=== PATIENT | female | born 1965 | race Caucasian/White ===

== ENCOUNTER 2016-09-07 14:08 | Emergency (ER) | payer MEDICAID ==
--- NOTE | 2016-09-07 14:06 | EDPHY ---
H & P Time Seen by Provider: 09/07/16 14:49 HPI/ROS: CHIEF COMPLAINT: Dizziness HISTORY OF PRESENT ILLNESS: This patient is a 51 year old female arriving by EMS from [facility] who presents complaining of persistent lightheadedness and intermittent episodes of room-spinning dizziness over the past two weeks. She was seen by her PCP at [facility] today for these complaints; she had an abnormal EKG at that time which prompted her transfer to the Emergency Department. Upon arrival, she reports persistent dizziness exacerbated by movement of her head or when attempting to walk. She does report a very mild headache with associated photophobia. She denies chest pain or shortness of breath. Medical history includes hyperlipidemia, untreated at present. REVIEW OF SYSTEMS: Constitutional: No fever, no chills Eyes: No visual changes ENT: No sore throat Respiratory: No cough, no shortness of breath Cardiac: No chest pain Gastrointestinal: No nausea, no vomiting, no abdominal pain Genitourinary: No hematuria, no dysuria Musculoskeletal: No leg pain or swelling Skin: No rash Neurological: +dizziness, +mild headache, no numbness, no weakness Psychiatric: No depression Past Medical/Surgical History: Hyperlipidemia. Social History: On Medicaid. Smokes daily. No alcohol use. Smoking Status: Current every day smoker Physical Exam: General Appearance: Alert, no distress Eyes: Pupils equal and round, no conjunctival pallor or injection, horizontal nystagmus when looking to the left ENT, Mouth: Mucous membranes moist Neck: Normal inspection Respiratory: Lungs are clear to auscultation Cardiovascular: Regular rate and rhythm Gastrointestinal: Abdomen is soft and non- tender Neurological: Alert, oriented x3, cranial nerves II through XII intact, motor 5/ 5, sensory intact to light touch, normal gait Skin: Warm and dry, no rash Extremities: Nontender, no pedal edema Psychiatric: Mood and affect normal Constitutional: Initial Vital Signs Temperature (C) 36.8 C 09/07/16 14:08 Heart Rate 83 09/07/16 14:08 Respiratory Rate 16 09/07/16 14:08 Blood Pressure 150/101 H 09/07/16 14:08 O2 Sat (%) 95 09/07/16 14:08 O2 Delivery Mode Room Air O2 (L/minute) 2 Allergies/Adverse Reactions: Penicillins Allergy (Verified 09/07/16 14:16) Home Medications: Medication Instructions Recorded Cymbalta 09/07/16 Meclizine HCl [Meclizine HCl 25 mg 25 mg PO TID PRN #15 tab 09/07/16 (RX,OTC)] VITAMIN D 09/07/16 Medical Decision Making - Diagnostics EKG Interpretation: EKG interpreted by me reveals normal sinus rhythm, rate 77, no ST/T changes. Interpretation: normal EKG Imaging: Chest x-ray reviewed by me reveals no acute disease. ED Course/Re-evaluation: This patient was referred to the ED from [facility] for abnormal finding on EKG and complaints of room-spinning dizziness over the past two weeks. I reviewed her records from [facility]; EKG obtained today demonstrated mild finding of poor R -wave progression. Her history and exam are suggestive of BPPV. She will be treated with Antivert and given a referral to ENT for further evaluation. Cardiac risk factors include hyperlipidemia and daily smoking. Given this, will proceed with chest x-ray, EKG, and labs including troponin. Labs obtained and are unremarkable. Troponin is negative. 1539: On reevaluation, the patient reports that her dizziness has improved following administration of Antivert. I discussed imaging and lab results with her. She understands my recommendation to follow-up with ENT and cardiology for further evaluation of her symptoms and is agreeable to this. She will be discharged home in good condition. Differential Diagnosis: Differential diagnosis includes TIA, stroke, intracranial hemorrhage, tumor, electrolyte abnormality and acute labyrinthitis. - Data Points Laboratory Results: Laboratory Results 09/07/16 14:32 09/07/16 14:32 09/07/16 09/07/16 14:32 14:32 WBC 8.02 10^3/uL 10^3/uL (3.80-9.50) RBC 4.72 10^6/uL 10^6/uL (4.18-5.33) Hgb 15.2 g/dL g/dL (12.6-16.3) Hct 43.2 % % (38.0-47.0) MCV 91.5 fL fL (81.5-99.8) MCH 32.2 pg pg (27.9-34.1) MCHC 35.2 g/dL g/dL (32.4-36.7) RDW 12.2 % % (11.5-15.2) Plt Count 308 10^3/uL 10^3/uL (150-400) MPV 9.1 fL fL (8.7-11.7) Neut % (Auto) 52.1 % % (39.3-74.2) Lymph % (Auto) 40.1 % % (15.0-45.0) Chase % (Auto) 5.4 % % (4.5-13.0) Eos % (Auto) 1.6 % % (0.6-7.6) Baso % (Auto) 0.6 % % (0.3-1.7) Nucleat RBC Rel Count 0.0 % % (0.0-0.2) Absolute Neuts (auto) 4.17 10^3/uL 10^3/uL (1.70-6.50) Absolute Lymphs (auto) 3.22 10^3/uL H 10^3/uL (1.00-3.00) Absolute Monos (auto) 0.43 10^3/uL 10^3/uL (0.30-0.80) Absolute Eos (auto) 0.13 10^3/uL 10^3/uL (0.03-0.40) Absolute Basos (auto) 0.05 10^3/uL 10^3/uL (0.02-0.10) Absolute Nucleated RBC 0.00 10^3/uL 10^3/uL (0-0.01) Immature Gran % 0.2 % % (0.0-1.1) Immature Gran # 0.02 10^3/uL 10^3/uL (0.00-0.10) Sodium 133 mEq/L L mEq/L (134-144) Potassium 4.2 mEq/L mEq/L (3.5-5.2) Chloride 100 mEq/L mEq/L (97-110) Carbon Dioxide 23 mEq/l mEq/l (22-31) Anion Gap 10 mEq/L mEq/L (8-16) BUN 9 mg/dL mg/dL (7-23) Creatinine 0.7 mg/dL mg/dL (0.6-1.0) Estimated GFR > 60 Glucose 93 mg/dL mg/dL (70-100) Calcium 9.7 mg/dL mg/dL (8.5-10.4) Troponin I < 0.012 ng/mL ng/mL (0-0.034) Departure - Departure Disposition: Home, Routine, Self-Care Clinical Impression: Vertigo Condition: Good Instructions: Vertigo (ED) Additional Instructions: 1. Follow up with Dr. Moreland, [employer] consultant, for further evaluation. Call tomorrow to schedule your appointment. 2. Schedule a follow-up appointment with an Ear, Nose, and Throat Specialist to treat your vertigo. We have referred you to [facility]. 3. Take Antivert as prescribed, as needed to treat your room-spinning dizziness. 4. Return to the Emergency Department if you experience chest pain, shortness of breath, numbness or weakness, difficulty walking, severe headache, or for other serious concerns. Referrals: Ezra Mcallister PA [Physician Contract Paralegal] - As per Instructions Chaim Moreland MD [Medical Doctor] - As per Instructions Prescriptions: Meclizine HCl [Meclizine HCl 25 mg (RX,OTC)] 25 mg PO TID PRN #15 tab PRN Reason: Dizziness Report Scribed for: Luba Ornelas Report Scribed by: Sultana Otto Date of Report: 09/07/16 Time of Report: 14:06 Physician Review and Approval Statement: 09/07/16 14:06 Portions of this note were transcribed by a medical staffing coordinator. I personally performed a history, physical exam, medical decision making, and confirmed accuracy of information the transcribed note.
[2016-09-07 14:20] VITALS: RESP 16; TEMP 98.2
--- NOTE | 2016-09-07 14:22 | CPEKG ---
Heart Rate: 77 RR Interval: 779 P-R Interval: 160 QRSD Interval: 88 QT Interval: 380 QTC Interval: 431 P Doerun: 59 QRS Doerun: 26 T Wave Doerun: 24 EKG Severity - NORMAL ECG - EKG Impression: SINUS RHYTHM Electronically Signed By: Luba Ornelas 07-Sep-2016 20:51:22
[2016-09-07 14:40] LABS: % IMMATURE GRANULYOCYTES 0.2 % (0.0-1.1); ABSOLUTE IMMATURE GRANULOCYTES 0.02 10^3/uL (0.00-0.10); ADD DIFF? NO; ADD MORPH? NO; ADD SCAN? NO; ATYPICAL LYMPHOCYTE FLAG 10 (0-99); FRAGMENT RBC FLAG 0 (0-99); HEMATOCRIT 43.2 % (38.0-47.0); HEMOGLOBIN 15.2 g/dL (12.6-16.3); LEFT SHIFT FLG 0 (0-99); LIPEMIA HEMOLYSIS FLAG 90 (0-99); MEAN CELL HEMOGLOBIN 32.2 pg (27.9-34.1); MEAN CELL HEMOGLOBIN CONCENTR. 35.2 g/dL (32.4-36.7); MEAN CELL VOLUME 91.5 fL (81.5-99.8); MEAN PLATELET VOLUME 9.1 fL (8.7-11.7); PLATELET CLUMPS FLAG 0 (0-99); PLATELET COUNT 308 10^3/uL (150-400); RED BLOOD CELL COUNT 4.72 10^6/uL (4.18-5.33); RED CELL DISTRIBUTION WIDTH 12.2 % (11.5-15.2)
[2016-09-07 14:53] LABS: ANION GAP 10 mEq/L (8-16); CALCIUM 9.7 mg/dL (8.5-10.4); CARBON DIOXIDE 23 mEq/l (22-31); CHLORIDE 100 mEq/L (97-110); CREATININE 0.7 mg/dL (0.6-1.0); GLOMERULAR FILTRATION RATE > 60; GLUCOSE 93 mg/dL (70-100); POTASSIUM 4.2 mEq/L (3.5-5.2); SODIUM 133 mEq/L (134-144)
[2016-09-07 15:03] LABS: TROPONIN I < 0.012 ng/mL (0-0.034)
[2016-09-07 15:56] VITALS: BP 122/78; PULSE 82; O2SAT 96
== END 2016-09-07 15:56 | disposition home or self-care (01) ==
LOC: EDUNIT#
DX: R42 Dizziness and giddiness (principal); F17.200 Nicotine dependence, unspecified, uncomplicated